=== PATIENT | male | born 1980 | race Caucasian/White ===

== ENCOUNTER 2022-02-18 02:30 | Emergency (ER) | payer MEDICAID ==
[2022-02-18] MEDS ORDERED: ibuprofen tablet 400 MG TABLET PO ONE (02:40)
[2022-02-18] MEDS ORDERED: clindamycin 150mg capsule PO ONE (02:40)
[2022-02-18] MEDS ORDERED: CLIN150C2 PO (02:43)
[2022-02-18 03:01] VITALS: BP 134/82
[2022-02-19] MEDS ORDERED: IBUP-1986 PO (15:57)
== END 2022-02-18 03:02 | disposition home or self-care (01) ==
LOC: ER 02:31
DX: K08.89 Other specified disorders of teeth and supporting structures (principal); F17.200 Nicotine dependence, unspecified, uncomplicated; Z79.2 Long term (current) use of antibiotics
CPT/HCPCS: 99283

== ENCOUNTER 2022-02-19 15:07 | Emergency (ER) | payer MEDICAID ==
[~2022-02-19] VITALS: Ht 182.9 cm; Wt 84.1 kg
[~2022-02-19 15:07] MED LIST: CLIN150C2 PO
[2022-02-19 15:11] VITALS: BP 124/88
[2022-02-19] MEDS ORDERED: IBUP-1986 PO (15:57)
== END 2022-02-19 16:07 | disposition home or self-care (01) ==
LOC: ER 15:09
DX: K08.89 Other specified disorders of teeth and supporting structures (principal); F17.200 Nicotine dependence, unspecified, uncomplicated; Z79.2 Long term (current) use of antibiotics
CPT/HCPCS: 99282